=== PATIENT | male | born 1995 | race Two or more races ===

== ENCOUNTER 2025-01-22 19:10 | Emergency (ER) | payer MEDICAID, OTHER ==
[~2025-01-22] VITALS: Ht 167.6 cm; Wt 94.1 kg
[2025-01-22] MEDS: HYDROcodone-ACET 5/325MG TAB PO ONE (19:55)
--- NOTE | 2025-01-22 20:23 | DVH ---
CLINICAL INDICATION: LEFT HAND LACERATION TECHNIQUE: XY L HAND 2V XRAY Comparison: None FINDINGS: No osseous or joint abnormality with no fracture or dislocation. Joint spaces are normal. No radiopaq ue foreign body noted. IMPRESSION: No abnormality demonstrated.
[2025-01-22 22:03] VITALS: BP 135/87; PULSE 77; RESP 16; TEMP 98.6; O2SAT 96
--- NOTE | 2025-01-22 23:05 | ED.PDOC ---
HPI Comments PT PRESENTED TO ED FOR RIGHT HAND LACERATION. 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 FATTY TISSUE EXPOSURE AND POSSIBLE TE NDON EXPOSURE. PT DENIED NUMBNESS/TINGLING. PT ABLE TO MOVE FINGERS APPTOPTIATELY. LACERATION CLEANED, BLEEDING CONTROLLED, DRESSING APPLIED. Chief Complaint: Laceration Time Seen by MD: 19:17 Reviewed Notes: Nurses Notes, Medications, Allergies Allergies: Coded Allergies: No Known Drug Allergy (Verified Allergy, Unknown, 01/22/25) Information Source: Patient Mode of Arrival: Ambulatory Complexity: Simple Laceration Length (cm): 2 Past Medical History PAST MEDICAL HISTORY: Denies Surgical History: Denies all surgeries Constitutional: denies: chills, diaphoresis, fatigue, fever, malaise, sweats, weakness, others EENTM: denies: blurred vision, double vision, ear bleeding, ear discharge, ear drainage, ear pain, ear ringing, eye pain, eye redness, hearing loss, mouth pain, mouth swelling, nasal discharge, nose bleeding, nose congestion, nose pain, photophobia, tearing, throat pain, throat swelling, voice changes, others Respiratory: denies: cough, hemoptysis, orthopnea, SOB at rest, shortness of breath, SOB with excertion, stridor, wheezing, others Cardiovascular: denies: chest pain, dizzy spells, diaphoresis, Dyspnea on exertion, edema, irregular heart beat, left arm pain, lightheadedness, p alpitations, PND, syncope, others Gastrointestinal: denies: abdomen distended, abdominal pain, blood streaked bowels, constipated, diarrhea, dysphagia, difficulty swallowing, hematemesis, melena, nausea, poor appetite, poor fluid intake, rectal bleeding, rectal pain, vomiting, others Genitourinary: denies: burning, dysuria, flank pain, frequency, hematuria, incontinence, penile discharge, penile sore, pain, testicle pain, testicle swelling, urgency, others Neurological: denies: dizziness, fainting, headache, left sided numbness, left sided weakness, numbness, paresthesia, pre-existing deficit, right sided numbness, right sided weakness, seizure, speech problems, tingling, tremors, weakness, others Musculoskeletal: denies: back pain, gout, joint pain, joint swelling, muscle pain, muscle stiffness, neck pain, others Integumetry: reports: laceration (LACERATION TO LEFT RING FINGER); denies: bruises, change in color, change in hair/nails, dryness, lesions, lumps, rash, wounds, others Allergic/Immunocompromised: denies: Difficulty Healing, Frequent Infections, Hives, Itching, others Hematologic/Lymphatic: denies: anemia, blood clots, easy bleeding, easy bruising, swollen glands, others Endocrine: denies: excessive hunger, excessive sweating, excessive thirst, excessive urination, flushing, intolerance to cold, intolerance to heat, unexplained weight gain, unexplained weight loss, others Psychiatric: denies: anxiety, bipolar disorder, depression, hopeless, panic disorder, schizophrenia, sleepless, suicidal, others Physical Exam General Appearance: No Apparent Distress, Normal HEENT: Pharynx Normal Neck: Full Range of Motion, Non-Tender Respiratory: Lungs Clear, No Respiratory Distress, Normal Breath Sounds Cardiovascular: No Murmur, Normal Peripheral Pulses, Regular Rate/Rhythm Breast Exam: Deferred Gastrointestinal: Non Tender, Soft Genitalia: Deferred Pelvic: Deferred Rectal: Deferred Extremities: Normal capillary refill, Normal inspection, Normal range of motion, Non-tender, No pedal edema Musculoskeletal : Apperance: Normal Neurologic: Alert, morning news producer II-XII nml as Tested, No Motor Deficits, Normal Affect, Normal Mood, No Sensory Deficits Cerebellar Function: Normal Reflexes: Normal Skin: Dry, Lacerations (2.0 CM LACERATION FULL-THICKNESS TO LEFT HAND DORSAL ASPECT TO 4TH DIGIT POSTERIORLY. BLEEDING CONTROLLED NO OBVIOUS FOREIGN BODY SENSORY AND MOTION INTACT REFILL LESS THAN 3 SECONDS), Normal Color, Warm Lymphatic: No Adenopathy Was a procedure done? Was a procedure done?: Yes Sedation Sedation?: No Informed consent obtained: Yes Laceration Repair : Location LEFT HAND 4TH DIGIT Length 2.5 CM Anesthetic: Lidocaine, Without epi Laceration Repair Prep: Saline Laceration Repair Wound Comple: epidermis/dermis repair Laceration Repair: Number of sutures (7), Simple Differential diagnosis Suture Removal: Wound Dehiscence Generic Laceration: Fracture, Abrasion/Contusion, Avulsion X-Ray, Labs, Meds, VS Vital Signs Date Time Temp Pulse Resp B/P (MAP) Pulse Ox O2 Delivery O2 Flow Rate FiO2 01/22/25 22:03 98.6 77 16 135/87 (103) 96 98.6 01/22/25 19:56 98.6 77 16 135/87 (103) 96 98.6 Current Medications Medications (Trade) Dose Ordered Sig/Ron Route Start Time Stop Time Status Last Admin Acetaminophen/ Hydrocodone Bitart (Farrell 5/325MG Tab) 1 tab ONCE ONCE PO 01/22/25 19:45 01/22/25 19:46 DC 01/22/25 19:55 Diphtheria/ Tetanus/Acell Pertussis (Boostrix T-Dap) 0.5 ml ONCE ONCE IM 01/22/25 23:15 01/22/25 23:16 DC 01/22/25 23:15 X-Ray, Labs, Meds, VS Comment SEE PROCEDURE NOTE. SUTURE REMOVAL IN 5-7 DAYS FOLLOW UP WITHIN 48 HOURS FOR WOUND RE-EVALUATION. TDAP GIVEN. [id number] TYLENOL OR MOTRIN NEEDED FOR THE PAIN PER LABELED DOSING INSTRUCTIONS. ER RETURN PRECAUTIONS GIVEN PATIENT INDICATES UNDERSTANDING AGREES WITH DISCHARGE PLAN OF CARE. Time of 1ST Reevaluation: 23:00 Reevaluation 1ST: Improved Patient Education/Counseling: Diagnosis, Treatment, Prognosis, Need For Follow Up Family Education/Counseling: No Family Present Departure 1 Departure Time of Disposition: 23:04 Impression: Primary Impression: Hand laceration Qualified Codes: S61.412A - Laceration without foreign body of left hand, initial encounter Disposition: HOME / SELF CARE / HOMELESS Condition: Stable Discharged With: Significant Other Critical Care Note Critical Care Time?: No Stability Stability form required: JING Ca Jan 22, 2025 23:05
[2025-01-22] MEDS: TETANUS-DIPTH-ACEL PERTUSSIS 0.5ML SYR Tdap IM ONE (23:15)
== END 2025-01-22 23:19 | disposition home or self-care (01) ==
LOC: ER 19:12 → EEVIPCON 19:12 → ER 23:19
DX: S61.412A Laceration without foreign body of left hand, initial encounter (principal); W31.9XXA Contact with unspecified machinery, initial encounter; Y93.H2 Activity, gardening and landscaping; Y92.89 Other specified places as the place of occurrence of the external cause; Y99.8 Other external cause status
CPT/HCPCS: 12001; 73120; 90471; 90715